=== PATIENT | female | born 1975 | race Caucasian/White ===

== ENCOUNTER 2019-07-08 01:55 | Emergency (ER) | payer OTHER ==
[~2019-07-08] VITALS: Ht 170.2 cm; Wt 88.0 kg
[2019-07-08 04:22] LABS: HEMATOCRIT. 31.1 % (36.0-48.0); HEMOGLOBIN. 9.8 g/dL (12.0-16.0); MEAN CORPUSCULAR HEMOGLOBIN 21.6 pg (28.0-32.0); MEAN CORPUSCULAR VOLUME 68.6 fL (81.0-99.0); MEAN PLATELET VOLUME 9.5 fl (7.4-10.4); PLATELET 313 x1000/uL (130-400); RED BLOOD CELL COUNT 4.54 mill/uL (4.2-5.4)
[2019-07-08 04:29] LABS: CHLORIDE 108 mEq/L (98-107)
[2019-07-08 04:40] LABS: B-HCG QUANTITATIVE < 1 mIU/mL (<3)
[2019-07-08] MEDS ORDERED: IBUPROFEN 600MG TABLET PO NR (05:30)
[2019-07-08 05:32] VITALS: BP 129/78
[2019-07-08 06:14] LABS: PLATELET ESTIMATE NORMAL
== END 2019-07-08 05:35 | disposition home or self-care (01) ==
LOC: EDBD 01:55 → ER 01:55
DX: N93.8 Other specified abnormal uterine and vaginal bleeding (principal); R10.84 Generalized abdominal pain; Z98.890 Other specified postprocedural states
CPT/HCPCS: 36415; 80053; 84702; 85025; 86850; 86900; 99283